=== PATIENT | female | born 1965 | race African-American/Black ===

== ENCOUNTER 2022-02-20 06:20 | Emergency (ER) | payer BC ==
[2022-02-20] MEDS ORDERED: Morphine 4 MG/ML VIAL ONE (07:22)
[2022-02-20] MEDS ORDERED: Ketorolac Tromethamine 30 MG/ML VIAL ONE (07:23)
[2022-02-20] MEDS ORDERED: Diazepam 5 MG TAB ONE (07:23)
== END 2022-02-20 07:58 | disposition home or self-care (01) ==
LOC: CSHERS 06:20
DX: M54.50 Low back pain, unspecified (principal); E11.9 Type 2 diabetes mellitus without complications; Z79.84 Long term (current) use of oral hypoglycemic drugs; Z79.4 Long term (current) use of insulin
CPT/HCPCS: 96372; 99283; J1885; J2270

== ENCOUNTER 2023-02-02 08:35 | Outpatient (CLI) | payer BC | END 2023-02-02 08:36 | disposition home or self-care (01) | LOC: CSHULT 08:35 | PROVIDERS: ATTEND Internal Medicine | DX: R01.1 Cardiac murmur, unspecified (principal); I51.9 Heart disease, unspecified | CPT/HCPCS: 93306 ==